=== PATIENT | male | born 2000 | race Hispanic/Latino ===

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

== ENCOUNTER 2021-05-02 18:58 | Emergency (ER) | payer OTHER ==
[2021-05-02] MEDS ORDERED: Ibuprofen 200 MG TAB ONE (19:14)
[2021-05-02 19:29] LABS: #Eosinphils 0.2 thou/uL (0.0-0.7); #Monocytes 0.8 thou/uL (0.11-0.59); #Neutrophils 7.6 thou/uL (1.40-6.50); %Basophils 0.4 % (0.0-1.0); %Eosinophils 1.9 % (0.0-10.0); %Lymphocytes 10.2 % (28.0-48.0); %Monocytes 8.2 % (0.0-4.0); %Neutrophils 79.3 % (31.0-61.0); Hemoglobin 15.3 g/dL (14.0-18.0); Mean Corpuscular HGB CONC 31.4 g/dL (32.0-36.0); Mean Corpuscular Hemoglobin 28.5 pg (25.0-35.0); Mean Corpuscular Volume 90.7 fL (78.0-98.0); Platelet Count 242 thou/uL (130-400); RBC Distribution Width 12.1 % (11.5-14.5); Red Blood Cell (RBC) Count 5.36 mill/uL (4.00-5.20); White Blood Cell (WBC) Count 9.5 thou/uL (4.8-10.8)
[2021-05-02] MEDS ORDERED: Sodium Chloride 0.9% 1,000 ML ONE (19:39)
[2021-05-02 19:47] LABS: ALT (SGPT) 35 U/L (8-55); AST (SGOT) 26 U/L (5-34); Albumin 4.6 g/dL (3.5-5.0); Alkaline Phosphatase 97 U/L (50-130); Anion Gap 14 mmol/L (10-20); BUN (Urea Nitrogen) 4 mg/dL (8.9-20.6); Bilirubin, Total 0.8 mg/dL (0.2-1.2); Calc. Creatinine Clearance 0 mL/min (70-130); Calcium 9.8 mg/dL (7.8-10.44); Carbon Dioxide 23 mmol/L (22-29); Chloride 104 mmol/L (98-107); Globulin 4.4 g/dL (2.4-3.5); Glucose 126 mg/dL (70-105); Potassium 3.2 mmol/L (3.5-5.1); Sodium 138 mmol/L (136-145)
[2021-05-02 20:26] LABS: SARS-CoV-2 NAA Rapid Test Not Detected (NotDetected)
== END 2021-05-02 21:56 | disposition home or self-care (01) ==
LOC: NAV ERS 18:58
DX: B34.9 Viral infection, unspecified (principal); E86.0 Dehydration; Z20.822 Contact with and (suspected) exposure to COVID-19; J45.909 Unspecified asthma, uncomplicated; Z79.899 Other long term (current) drug therapy
CPT/HCPCS: 0240U; 71045; 80053; 83605; 85025; 85379; 93005; 94760; J7050